=== PATIENT | male | born 1960 | race Caucasian/White ===

== ENCOUNTER 2023-08-26 04:31 | Day surgery (SDC) | payer OTHER ==
[2023-08-19 15:02] VITALS: BMI 34.0
[2023-08-26 09:21] VITALS: TEMP 97.8
[2023-08-26 09:52] VITALS: BP 118/72; PULSE 68; RESP 15
== END 2023-08-26 09:52 | disposition home or self-care (01) ==
LOC: JASU-ENDO 04:31
PROVIDERS: ATTEND Internal Medicine Gastroenterology
PROC: 0DBH8ZX Excision of Cecum, Via Natural or Artificial Opening Endoscopic, Diagnostic (ICD-10-PCS; 2023-08-26)
PROC: 0DBP8ZX Excision of Rectum, Via Natural or Artificial Opening Endoscopic, Diagnostic (ICD-10-PCS; 2023-08-26)
PROC: 0DBH8ZX Excision of Cecum, Via Natural or Artificial Opening Endoscopic, Diagnostic (ICD-10-PCS; principal; 2023-08-26 09:00)
DX: Z12.11 Encounter for screening for malignant neoplasm of colon (principal); D12.0 Benign neoplasm of cecum; D12.8 Benign neoplasm of rectum; K64.8 Other hemorrhoids; K57.30 Diverticulosis of large intestine without perforation or abscess without bleeding; Z86.010 Personal history of colon polyps; I10 Essential (primary) hypertension
CPT/HCPCS: 88305-TC